=== PATIENT | male | born 1950 | race Caucasian/White ===

== ENCOUNTER → 2017-10-12 | Outpatient (CLI) | payer MEDICARE | END | disposition home or self-care (01) | LOC: PLD 10:16 → LAB SHORT 10:16 | DX: C44.41 Basal cell carcinoma of skin of scalp and neck (principal) | CPT/HCPCS: 88305 ==

== ENCOUNTER → 2018-09-18 | Outpatient (CLI) | payer OTHER | END | disposition home or self-care (01) | LOC: PLD 10:46 → LAB SHORT 10:46 | DX: D48.5 Neoplasm of uncertain behavior of skin (principal) | CPT/HCPCS: 88304 ==

== ENCOUNTER → 2019-07-25 | Outpatient (CLI) | payer OTHER ==
[2019-08-06 15:10] LABS: BRUSHITE 1.07 ratio (0.00-3.00); CALCIUM OXALATE 5.21 ratio (0.00-6.00); CALCIUM, URINE 21.5 mg/dL (Not Estab.); CHLORIDE URINE 139 (110-250); CITRIC ACID (CITRATE) 299 mg/L (Not Estab.); CITRIC ACID(CITRATE) 419 mg/24 hr (320-1240); CREATININE, URINE 57.9 mg/dL (Not Estab.); CREATININE, URINE 810.6 mg/24 hr (1000.0-2000.0); MAGNESIUM, URINE 5.4 mg/dL (Not Estab.); MONOSODIUM URATE 1.02 ratio (0.00-4.00); OSMOLALITY, URINE 579 (300-900); SODIUM, URINE 101 mmol/L (Not Estab.); SODIUM, URINE 141 (58-337); STRUVITE 0.01 ratio (0.00-1.00); URIC ACID 1.59 ratio (0.00-1.20); URINE VOLUME 1400 mL/24 hr (800-1800); URINE VOLUME (PRESERVATIVE) 1400 mL/24 hr (800-1800)
== END | disposition home or self-care (01) ==
LOC: OLS 13:39 → LAB SHORT 13:39
PROVIDERS: Urology
DX: N20.0 Calculus of kidney (principal); Z85.46 Personal history of malignant neoplasm of prostate
CPT/HCPCS: 81003; 82131; 82140; 82340; 82436; 82507; 82570; 83735; 83935; 83945; 84105; 84133; 84300; 84392; 84560

== ENCOUNTER 2020-12-07 07:48 | Emergency (ER) | payer OTHER, MEDICARE ==
[~2020-12-07] VITALS: Ht 172.7 cm; Wt 99.8 kg
[2020-12-07] MEDS ORDERED: OMEP20ER PO (07:59)
[2020-12-07] MEDS ORDERED: SYNTHROID75 MCG PO (07:59)
[2020-12-07 08:27] LABS: BASOPHILS ABSOLUTE AUTO 0.04 K/mm3 (0.00-0.23); BASOPHILS PERCENT AUTO 0 % (0-2); EOSINOPHILS ABSOLUTE AUTO 0.13 K/mm3 (0.00-0.68); EOSINOPHILS PERCENT AUTO 1 % (0-6); Hematocrit 45.6 % (37.0-53.0); Hemoglobin 15.4 g/dL (13.5-17.5); IMMATURE GRAN ABSOLUTE AUTO 0.06 K/mm3 (0.00-0.10); IMMATURE GRAN PERCENT AUTO 0 % (0-1); LYMPHOCYTES PERCENT AUTO 7 % (21-46); MONOCYTES ABSOLUTE AUTO 1.59 K/mm3 (0.16-1.47); MONOCYTES PERCENT AUTO 12 % (4-13); Mean Corpuscular HGB 30.6 pg (26.0-34.0); Mean Corpuscular HGB Conc 33.8 g/dL (31.5-36.5); Mean Corpuscular Volume 91 fL (80-100); Mean Platelet Volume 9.9 fL (9.1-12.4); NEUTROPHILS PERCENT AUTO 80 % (41-73); Platelet Count 183 K/mm3 (150-400); RDW Coefficient Variation 13.2 % (11.7-14.2); RDW Standard Deviation 43.5 fL (35.1-46.3); Red Blood Cell Count 5.04 M/mm3 (4.30-5.90); White Blood Cell Count 13.72 K/mm3 (4.00-11.30)
[2020-12-07 08:49] LABS: Albumin, Blood 3.3 g/dL (3.4-5.0); Albumin/Globulin Ratio 0.9 (0.8-1.8); Bilirubin, Total 1.2 mg/dL (0.1-1.0); Bun/Creatinine Ratio 14.4 (12.0-20.0); Calcium, Blood 8.6 mg/dL (8.5-10.1); Creatinine, Blood 1.53 mg/dL (0.60-1.20); Globulin, Blood 3.7 g/dL (2.2-4.0); Potassium, Blood 3.9 mmol/L (3.5-5.5)
[2020-12-07 10:02] LABS: Source, Urine Clean Catch
[2020-12-07 10:11] LABS: Appearance, Urine Clear (Clear); Bilirubin, Urine Neg (Neg); Blood, Urine Neg (Neg); Color, Urine Yellow (P-Yellow); Glucose Qualitative, Urine Neg (Neg); Ketones, Urine Neg (Neg); Leukocyte Esterase, Urine Neg (Neg); Nitrite, Urine Neg (Neg); Protein, Urine Neg (Neg); Urobilinogen, Urine NORM (Normal)
[2020-12-07 11:34] LABS: SARS-Cov-2 (COVID-19) PCR, MMC NEGATIVE (NEGATIVE)
== END 2020-12-07 12:24 | disposition short-term general hospital (02) ==
LOC: ER 07:48
PROVIDERS: Emergency Medicine
DX: N13.2 Hydronephrosis with renal and ureteral calculous obstruction (principal); Z20.822 Contact with and (suspected) exposure to COVID-19; Z79.899 Other long term (current) drug therapy
CPT/HCPCS: 36415; 74176; 80053; 81003; 83690; 85025; 99285-25; J7030; U0004

== ENCOUNTER → 2024-05-07 | Outpatient (CLI) | payer MEDICARE ==
[~2024-05-07] MED LIST: OMEP20ER PO; SYNTHROID75 MCG PO
== END ==
LOC: LAB SHORT 08:09 → LAB 08:09
DX: L08.0 Pyoderma (principal)
CPT/HCPCS: 87070; 87205